=== PATIENT | female | born 2000 | race Caucasian/White ===

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

== ENCOUNTER 2021-04-13 12:49 | Emergency (ER) | payer OTHER ==
[~2021-04-13] VITALS: Ht 165.1 cm; Wt 54.1 kg
[2021-04-13] MEDS ORDERED: PRENTAB53 PO (12:54)
[2021-04-13 14:03] LABS: HEMATOCRIT 36.6 % (36.0-47.0); HEMOGLOBIN 12.2 g/dl (12.0-15.5); MEAN CORPUSCULAR HGB CONC 33.3 g/dl (32.0-36.5); MEAN CORPUSCULAR VOLUME 87.1 fl (80.0-96.0); PLATELET COUNT, AUTOMATED 261 10^3/uL (150-450); WHITE BLOOD COUNT 11.5 10^3/uL (4.0-10.0)
[2021-04-13 15:29] VITALS: BP 96/52
== END 2021-04-13 15:34 | disposition home or self-care (01) ==
LOC: M ED 12:49
DX: O26.891 Other specified pregnancy related conditions, first trimester (principal); N89.8 Other specified noninflammatory disorders of vagina; Z3A.01 Less than 8 weeks gestation of pregnancy

== ENCOUNTER 2021-06-20 09:36 | Emergency (ER) | payer OTHER ==
[~2021-06-20] VITALS: Ht 165.1 cm; Wt 57.7 kg
[~2021-06-20 09:36] MED LIST changes: -ISOVUE-370 76% 100ML VIAL As Ordered ONE; +PRENTAB53 PO; -SILVER NITRATE APPLICATOR As Ordered ONE
[2021-06-20] MEDS ORDERED: ACET1TAB55 PO (10:15)
[2021-06-20] MEDS ORDERED: RIBO400T PO (10:15)
[2021-06-20] MEDS ORDERED: GNP250TA9 PO (10:15)
[2021-06-20] MEDS ORDERED: NS 1,000 ML IV ONE (12:55)
[2021-06-20 13:27] LABS: BASO % 0.3 % (0.0-1.0); EOS # 0.3 10^3/uL (0.0-0.5); HEMATOCRIT 38.2 % (36.0-47.0); HEMOGLOBIN 12.8 g/dl (12.0-15.5); LYMPH # 1.9 10^3/uL (1.5-5.0); LYMPH % 12.2 % (24.0-44.0); MEAN CORPUSCULAR HEMOGLOBIN 29.8 pg (27.0-33.0); MEAN CORPUSCULAR HGB CONC 33.5 g/dl (32.0-36.5); MONO # 1.1 10^3/uL (0.0-0.8); MONO % 7.1 % (2.0-8.0); NEUTROPHILS # 12.1 10^3/uL (1.5-8.5); NEUTROPHILS % 77.4 % (36.0-66.0); PLATELET COUNT, AUTOMATED 240 10^3/uL (150-450); RED BLOOD COUNT 4.29 10^6/uL (4.00-5.40); WHITE BLOOD COUNT 15.6 10^3/uL (4.0-10.0)
[2021-06-20 13:53] LABS: ALBUMIN 3.3 GM/DL (3.2-5.2); ALT/SGPT 32 U/L (12-78); BILIRUBIN,DIRECT 0.1 MG/DL (0.0-0.2); BILIRUBIN,TOTAL 0.3 MG/DL (0.2-1.0); BLOOD UREA NITROGEN 8 MG/DL (7-18); CALCIUM LEVEL 8.9 MG/DL (8.5-10.1); CARBON DIOXIDE LEVEL 25 MEQ/L (21-32); CHLORIDE LEVEL 107 MEQ/L (98-107); CREATININE FOR GFR 0.56 MG/DL (0.55-1.30); FREE T4 0.95 NG/DL (0.78-1.33); GLUCOSE, FASTING 87 MG/DL (70-100); MAGNESIUM LEVEL 2.1 MG/DL (1.8-2.4); POTASSIUM SERUM 4.3 MEQ/L (3.5-5.1); SODIUM LEVEL 136 MEQ/L (136-145); TOTAL PROTEIN 6.9 GM/DL (6.4-8.2)
[2021-06-20 14:00] LABS: INR 0.97; PROTHROMBIN TIME 13.3 SECONDS (12.7-14.5)
[2021-06-20 14:01] LABS: PARTIAL THROMBOPLASTIN TIME 27.2 SECONDS (25.9-37.0)
[2021-06-20] MEDS ORDERED: AMOX875T2 PO (20:18)
[2021-06-20] MEDS ORDERED: AUGMENTIN 875 MG TAB PO ONE (20:25)
[2021-06-20 20:48] VITALS: BP 116/64
== END 2021-06-20 20:48 | disposition home or self-care (01) ==
LOC: M ED 09:36
DX: R51.9 Headache, unspecified (principal); J32.9 Chronic sinusitis, unspecified; M54.30 Sciatica, unspecified side; Z79.899 Other long term (current) drug therapy

== ENCOUNTER 2021-07-21 09:42 | Emergency (ER) | payer OTHER ==
[~2021-07-21] VITALS: Ht 165.1 cm; Wt 62.7 kg
[~2021-07-21 09:42] MED LIST changes: +ACET1TAB55 PO; +AMOX875T2 PO; +GNP250TA9 PO; +RIBO400T PO
[2021-07-21 11:55] LABS: BASO # 0.1 10^3/uL (0.0-0.2); BASO % 0.5 % (0.0-1.0); EOS # 0.4 10^3/uL (0.0-0.5); EOS % 2.5 % (0.0-3.0); HEMATOCRIT 35.8 % (36.0-47.0); HEMOGLOBIN 12.1 g/dl (12.0-15.5); LYMPH # 2.1 10^3/uL (1.5-5.0); LYMPH % 14.1 % (24.0-44.0); MEAN CORPUSCULAR HEMOGLOBIN 30.1 pg (27.0-33.0); MEAN CORPUSCULAR HGB CONC 33.8 g/dl (32.0-36.5); MEAN CORPUSCULAR VOLUME 89.1 fl (80.0-96.0); MONO # 1.1 10^3/uL (0.0-0.8); MONO % 7.2 % (2.0-8.0); NEUTROPHILS # 10.9 10^3/uL (1.5-8.5); NEUTROPHILS % 74.1 % (36.0-66.0); PLATELET COUNT, AUTOMATED 232 10^3/uL (150-450); RED BLOOD COUNT 4.02 10^6/uL (4.00-5.40); WHITE BLOOD COUNT 14.7 10^3/uL (4.0-10.0)
[2021-07-21 12:26] LABS: ALT/SGPT 25 U/L (12-78); BILIRUBIN,TOTAL 0.2 MG/DL (0.2-1.0); BLOOD UREA NITROGEN 11 MG/DL (7-18); CALCIUM LEVEL 8.7 MG/DL (8.5-10.1); CARBON DIOXIDE LEVEL 25 MEQ/L (21-32); CHLORIDE LEVEL 108 MEQ/L (98-107); CREATININE FOR GFR 0.67 MG/DL (0.55-1.30); GLUCOSE, FASTING 78 MG/DL (70-100); POTASSIUM SERUM 4.5 MEQ/L (3.5-5.1); SODIUM LEVEL 136 MEQ/L (136-145); TOTAL PROTEIN 6.4 GM/DL (6.4-8.2)
[2021-07-21] MEDS ORDERED: ONDA4TAB6 PO (13:25)
[2021-07-21] MEDS ORDERED: MECL1TAB31 PO (13:25)
[2021-07-21 13:32] VITALS: BP 106/57
== END 2021-07-21 13:33 | disposition home or self-care (01) ==
LOC: M ED 09:42
DX: O26.92 Pregnancy related conditions, unspecified, second trimester (principal); R42 Dizziness and giddiness; Z3A.21 21 weeks gestation of pregnancy; Z79.899 Other long term (current) drug therapy

== ENCOUNTER → 2021-09-09 | Outpatient (CLI) | payer OTHER ==
[~2021-09-09] MED LIST changes: +MECL1TAB31 PO; +ONDA4TAB6 PO
== END ==
LOC: M LDO 12:33
PROVIDERS: ATTEND Obstetrics & Gynecology
DX: O36.8130 Decreased fetal movements, third trimester, not applicable or unspecified (principal); Z3A.28 28 weeks gestation of pregnancy; O35.9XX0 Maternal care for (suspected) fetal abnormality and damage, unspecified, not applicable or unspecified
CPT/HCPCS: 59025; 76811; 76819; 76820; G0463

== ENCOUNTER 2021-10-03 13:44 | Outpatient (CLI) | payer OTHER ==
[~2021-10-03] VITALS: Ht 165.1 cm; Wt 65.1 kg
[2021-10-03 14:03] VITALS: BP 111/57
[2021-10-03] MEDS ORDERED: HOME MED LIST COMPLETE! XX SCH (14:05)
== END 2021-10-03 15:15 | disposition home or self-care (01) ==
LOC: M LDO 13:44
PROVIDERS: ATTEND Obstetrics & Gynecology
DX: O47.03 False labor before 37 completed weeks of gestation, third trimester (principal); Z3A.32 32 weeks gestation of pregnancy; O35.8XX0 Maternal care for other (suspected) fetal abnormality and damage, not applicable or unspecified
CPT/HCPCS: 59025; G0378; G0463

== ENCOUNTER 2021-10-19 12:20 | Outpatient (CLI) | payer OTHER ==
[~2021-10-19] VITALS: Ht 165.1 cm; Wt 67.0 kg
[2021-10-19] MEDS ORDERED: HOME MED LIST COMPLETE! XX SCH (12:40)
[2021-10-19 12:43] VITALS: BP 100/60
== END 2021-10-19 14:20 | disposition home or self-care (01) ==
LOC: M LDO 12:20
PROVIDERS: ATTEND Registered Nurse
DX: O26.893 Other specified pregnancy related conditions, third trimester (principal); N89.8 Other specified noninflammatory disorders of vagina; Z3A.34 34 weeks gestation of pregnancy
CPT/HCPCS: 59025; G0378; G0463

== ENCOUNTER 2021-10-27 10:48 | Outpatient (CLI) | payer OTHER ==
[~2021-10-27] VITALS: Ht 165.1 cm; Wt 68.7 kg
[2021-10-27 11:02] VITALS: BP 100/57
== END 2021-10-27 13:08 | disposition home or self-care (01) ==
LOC: M LDO 10:48
PROVIDERS: ATTEND Obstetrics & Gynecology
DX: O36.8130 Decreased fetal movements, third trimester, not applicable or unspecified (principal); Z3A.35 35 weeks gestation of pregnancy; O35.8XX0 Maternal care for other (suspected) fetal abnormality and damage, not applicable or unspecified
CPT/HCPCS: 59025; G0378; G0463